=== PATIENT | female | born 1955 | race Caucasian/White ===

== ENCOUNTER → 2024-08-12 12:59 | Outpatient (REF) | payer MEDICARE, SELFPAY | LOC: RCS 12:59 | PROVIDERS: ATTENDING PHYSICIAN Internal Medicine Cardiovascular Disease; FAMILY PHYSICIAN Family Medicine | DX: I48.0 Paroxysmal atrial fibrillation (principal); I77.810 Thoracic aortic ectasia; E66.01 Morbid (severe) obesity due to excess calories | CPT/HCPCS: 71250; 93225; 93226; 93307; Q9957 ==